=== PATIENT | male | born 1940 | race Caucasian/White ===

== ENCOUNTER → 2020-05-06 | Emergency (ER) | payer MEDICARE, OTHER ==
[~2020-05-06] VITALS: Ht 182.9 cm; Wt 69.4 kg
[~2020-05-06] MED LIST: ASPIR-LOW81 MG PO; ATORVASTATIN CA20 MG PO; CALCIUM500 M1 PO; CIPRO500 MG PO; COMPAZINE25 MG PR; DITROPAN XL5 MG PO; DOCETAXEL IV; FISH OIL300 MG PO; FLOMAX0.4 MG PO; KETOROLAC TROME10 MG PO; MILLIPRED5 MG PO; NEULASTA6 MG/0.61 SQ; ZOCOR5 MG; ZOFRAN ODT4 MG PO
--- NOTE | 2020-05-09 15:43 | OR ---
[facility] [address], [place] [address] Signed DATE OF OPERATION: 05/06/2020 SURGEON: Celestine Woodard MD PREOPERATIVE DIAGNOSES: 1. Difficult Ricks catheterization. 2. History of metastatic prostate cancer, status post radiation and chemotherapy. POSTOPERATIVE DIAGNOSES: 1. 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 2. Metastatic prostate cancer, status post radiation chemotherapy. PROCEDURES: 1. Diagnostic ureteroscopy with insertion of 16-[place]adian [place]-tip Ricks catheter over a Sensor wire and into the patient's bladder. 2. Urethral dilation using Alta dilators from 14-Chadian to 18-Chadian. ANESTHESIA: 10 mL of 2% lidocaine gel. COMPLICATIONS: None. SPECIMENS: None. DRAINS: A 16-Chadian [place]-tip Ricks catheter, connected to gravity drainage. INDICATIONS FOR PROCEDURE: Mr. Albrecht is a very pleasant 79-year-old gentleman, who is in hospice care for metastatic prostate cancer. His most recent chemotherapy session was discontinued around 6 weeks ago. He is a former patient of Dr. Lu, who has performed urethral dilation on the patient in the past, presumably for radiation-induced urethral stenosis. Hospice nurse noted earlier today that the patient had been complaining of severe nocturia, voiding around every 1 hour overnight. This has been affecting his quality of life and he earlier today requested insertion of a Ricks catheter. The hospice nurse attempted insertion of the Ricks catheter. However, she was unsuccessful. The hospice nurse immediately placed a transport request for the patient to head to the emergency department for placement of a Ricks catheter. Upon evaluation in the emergency Electronically Signed By: CELESTINE WOODARD MD 05/09/20 1543 PATIENT NAME: ALLA ALBRECHT OPERATIVE REPORT DATE OF : 38 REPORT #: [id number] PHYSICIAN: CELESTINE WOODARD MD PCP: HO ARELLANO MD REPORT IS CONFIDENTIAL AND NOT TO BE RELEASED WITHOUT AUTHORIZATION [facility] [address], [place] [address] Signed department, the patient was bladder scanned for around 100 mL. The patient denied any issues with urinary retention or incontinence. His biggest issue as stated above was voiding q.1 hour overnight with interrupted sleep. Urology was consulted to assist in placement of the catheter. FINDINGS: Ureteroscopy revealed a whitish urethral mucosa present both in the pendulous urethra as well as in the bulbar urethra. At the level of the bulbar urethra, there is a narrowing of the urethra that does not admit a 17-Chadian flexible cystoscope. There is no evidence of any active stricture within the bulbar or pendulous urethra. The patient's sphincter appears intact. Through the cystoscope, I passed a 0.035 Sensor wire into the patient's bladder under direct visualization. The cystoscope was then removed. I then dilated the patient's urethra from 14-Chadian to 18-Chadian using Alta dilators. The dilation was performed without any difficulty. Once dilation was complete, over the existing Sensor wire, I passed a 16-[place]adian [place]-tip Ricks catheter into the patient's bladder. I met with a decent amount of resistance. However, I was ultimately able to successfully place the catheter into the patient's bladder. Approximately 40 mL of austin colored urine was drained from the bladder once the catheter was placed. DESCRIPTION OF PROCEDURE: As stated above. The patient was transferred from the emergency department up to the clinic in order to take advantage of the facilities and the cystoscope available there. The patient was placed in supine position and his genitalia were prepped and draped in a standard sterile fashion. Using a flexible cystoscope, a diagnostic ureteroscopy was performed. Please see above findings. I passed a 0.035 Sensor wire through the stenotic bulbar urethra and into the patient's bladder. Over the wire, I passed Alta dilators from 14-Chadian to 18-Chadian to perform urethral dilation, which was performed successfully. After the patient's urethra was dilated successfully, I passed a 16-Chadian [place]-tip Ricks catheter over the indwelling Sensor wire and into the patient's bladder. Please see above findings. The Sensor wire was removed and the catheter was connected to a gravity drainage bag. The procedure was then terminated. The patient tolerated the procedure well, which went without any complication. He will now be transferred back to the emergency department for further care. Disposition: After discussion with the patient and his , they have elected to undergo routine acute 2-3 week Ricks catheter exchanges here in our clinic. He will be scheduled for his next Ricks catheter exchange this evening prior to his discharge. Celestine Woodard MD Electronically Signed By: CELESTINE WOODARD MD 05/09/20 1543 PATIENT NAME: ALLA ALBRECHT OPERATIVE REPORT DATE OF : 38 REPORT #: [id number] PHYSICIAN: CELESTINE WOODARD MD PCP: HO ARELLANO MD REPORT IS CONFIDENTIAL AND NOT TO BE RELEASED WITHOUT AUTHORIZATION [address] [address] Signed AR/MODL /[id number] Copies: ~ Electronically Signed By: CELESTINE WOODARD MD 05/09/20 1543 PATIENT NAME: ALLA ALBRECHT OPERATIVE REPORT DATE OF : 38 REPORT #: [id number] PHYSICIAN: CELESTINE WOODARD MD PCP: HO ARELLANO MD REPORT IS CONFIDENTIAL AND NOT TO BE RELEASED WITHOUT AUTHORIZATION
== END ==
LOC: ED 15:43
DX: N32.0 Bladder-neck obstruction (principal); C61 Malignant neoplasm of prostate; Z79.899 Other long term (current) drug therapy; Z79.52 Long term (current) use of systemic steroids
CPT/HCPCS: 99283